=== PATIENT | male | born 1985 | race Caucasian/White ===

== ENCOUNTER 2024-04-24 14:22 | Inpatient (IN) | payer OTHER ==
[2024-04-24 15:27] VITALS: BMI 35.9
[2024-04-24] MEDS ORDERED: NICOTINE POLACRILEX 2 MG LOZENGE BC PRN (16:48)
[2024-04-24] MEDS ORDERED: IBUPROFEN 600 MG TABLET (FP) PO PRN (16:48)
[2024-04-24] MEDS ORDERED: NALOXONE (NARCAN) HCL 4 MG/0.1 ML SPRAY NS PRN (16:48)
[2024-04-24] MEDS ORDERED: ACETAMINOPHEN 325 MG TABLET (FP) PO PRN (16:48)
[2024-04-24] MEDS ORDERED: ONDANSETRON *ODT* 4 MG TABLET SL PRN (16:48)
[2024-04-24] MEDS ORDERED: BENZONATATE 200 MG CAPSULE PO PRN (16:48)
[2024-04-24] MEDS ORDERED: guaiFENesin 600 MG TABLET.ER (FP) PO PRN (16:48)
[2024-04-24] MEDS ORDERED: DICYCLOMINE HCL 10 MG CAPSULE PO PRN (16:48)
[2024-04-24] MEDS ORDERED: hydrOXYzine PAMOATE 25 MG CAPSULE (FP) PO PRN (16:48)
[2024-04-24] MEDS ORDERED: IBUPROFEN 400 MG TABLET (FP) PO PRN (16:48)
[2024-04-24] MEDS ORDERED: MAG HYDROX/AL HYDROX/SIMETH 30 ML UNIT-DOSE CUP PO PRN (16:48)
[2024-04-24] MEDS ORDERED: POLYETHYLENE GLYCOL (HEALTHYLAX) 3350 17 GM PACKET PO PRN (16:48)
[2024-04-24] MEDS ORDERED: BISMUTH SUBSALICYLATE 524 MG/30 ML PO PRN (16:48)
[2024-04-24] MEDS ORDERED: P-EPHED 60MG/TRIPROLIDI 2.5MG TABLET PO PRN (16:48)
[2024-04-24] MEDS ORDERED: LOPERAMIDE HCL 2 MG CAPSULE PO PRN (16:48)
[2024-04-24] MEDS: MELATONIN 5 MG TABLETS PO SCH (21:45)
[2024-04-24] MEDS: THIAMINE 100 MG TABLET PO SCH (21:45)
[2024-04-24] MEDS: METHOCARBAMOL 500 MG TABLET PO PRN (21:46)
[2024-04-25] MEDS ORDERED: chlordiazePOXIDE HCL 25 MG CAPSULE PO PRN (09:21)
[2024-04-25] MEDS: FLU VACCINE (FLULAVAL) PF 45 MCG/0.5 ML SYRINGE 2024-2025 IM ONE (09:40)
[2024-04-25] MEDS: PRENATAL VITAMINS W/ FOLIC ACID TABLET (FP) PO SCH (09:40)
[2024-04-25] MEDS: methaDONE HCL 10 MG TABLET PO SCH (09:48)
[2024-04-25 10:32] LABS: HEMATOCRIT 44.1 % (35.4-49); HEMOGLOBIN 15.1 GM/dL (11.7-16.9); MCH 32.3 pg (25.7-33.7); MCHC 34.2 g/dl (32.0-35.9); MEAN CELL VOLUME 94.4 fl (80-96); MEAN PLT VOLUME 9.4 fl (7.5-11.1); PLATELET COUNT 167 10^3/uL (134-434); RBC 4.67 M/mm3 (4.00-5.60); RDW 13.1 % (11.9-15.9); WHITE BLOOD COUNT 5.5 K/mm3 (4.0-10.0)
[2024-04-25 10:34] LABS: POTASSIUM 5.3 mmol/L (3.5-5.1)
[2024-04-25 10:40] LABS: ALBUMIN 3.7 g/dl (3.4-5.0); BLOOD UREA NITROGEN 9.9 mg/dL (7-18)
[2024-04-25 10:43] LABS: BILIRUBIN,TOTAL 1.3 mg/dL (0.2-1); TOT PROT 8.3 g/dl (6.4-8.2)
[2024-04-25] MEDS: chlordiazePOXIDE HCL 25 MG CAPSULE PO SCH (10:46)
[2024-04-25] MEDS: NICOTINE 14 MG/24 HOURS TOPICAL PATCH TD SCH (10:46)
[2024-04-25] MEDS: BICTEGRAV/EMTRICIT/TENOFOV (BIKTARVY) 50-200-25 MG TABLET PO SCH (14:43)
[2024-04-25 17:31] LABS: POTASSIUM 4.3 mmol/L (3.5-5.1)
[2024-04-25 17:33] LABS: CALCIUM 9.6 mg/dL (8.5-10.1)
[2024-04-25 17:34] LABS: BLOOD UREA NITROGEN 10.3 mg/dL (7-18)
[2024-04-26] MEDS: NICOTINE POLACRILEX 2 MG GUM BUC PRN (07:44)
[2024-04-26] MEDS: MAGNESIUM HYDROX 2400MG/30ML ORAL SUSPENSION 30 ML CUP PO PRN (14:43)
[2024-04-27] MEDS: chlordiazePOXIDE HCL 25 MG CAPSULE PO SCH (05:10)
[2024-04-27] MEDS: CLOTRIMAZOLE 1% CREAM TP SCH (14:46)
[2024-04-28] MEDS ORDERED: chlordiazePOXIDE HCL 10 MG CAPSULE PO PRN
[2024-04-28] MEDS: chlordiazePOXIDE HCL 10 MG CAPSULE PO SCH (05:19)
[2024-04-29] MEDS: chlordiazePOXIDE HCL 10 MG CAPSULE PO SCH (05:51)
[2024-04-29] MEDS: methaDONE HCL 10 MG TABLET PO ONE (10:00)
[2024-04-29 16:53] VITALS: RESP 18
[2024-04-30] MEDS: chlordiazePOXIDE HCL 10 MG CAPSULE PO ONE (05:28)
[2024-04-30] MEDS: BENZOCAINE/MENTHOL (CHLORASEPTIC ) LOZENGE MM PRN (05:29)
[2024-04-30] MEDS: NYSTATIN 500,000 UNITS/5 ML SUSPENSION PO ONE (09:54)
[2024-04-30] MEDS: NALOXONE (NYS OPIOID OVERDOSE PROGRAM) 4 MG/0.1 ML SPRAY NS SCH (09:59)
[2024-04-30 13:12] VITALS: BP 133/78; PULSE 78; TEMP 98
== END 2024-04-30 15:21 | disposition other institution (70) | DRG 773 ==
LOC: YASAS 14:22 → Y3N 20:15
PROVIDERS: ADMIT Allergy & Immunology; ATTEND Surgery
PROC: HZ2ZZZZ Detoxification Services for Substance Abuse Treatment (ICD-10-PCS; principal; 2024-04-24)
DX: F10.230 Alcohol dependence with withdrawal, uncomplicated (principal); F11.20 Opioid dependence, uncomplicated; F12.20 Cannabis dependence, uncomplicated; F17.210 Nicotine dependence, cigarettes, uncomplicated; F39 Unspecified mood [affective] disorder; Z21 Asymptomatic human immunodeficiency virus [HIV] infection status; R74.01 Elevation of levels of liver transaminase levels; Z79.899 Other long term (current) drug therapy
CPT/HCPCS: 36415; 80048; 80053; 80305; 80307; 85027; 86780; 87811; 90656; 93005; 93010; G0008

== ENCOUNTER 2024-04-30 17:23 | Inpatient (IN) | payer OTHER ==
[2024-04-30] MEDS ORDERED: NALOXONE (NARCAN) HCL 4 MG/0.1 ML SPRAY NS PRN (18:20)
[2024-04-30] MEDS ORDERED: MAGNESIUM HYDROX 2400MG/30ML ORAL SUSPENSION 30 ML CUP PO PRN (18:20)
[2024-04-30] MEDS ORDERED: NALOXONE HCL 0.4 MG/ML VIAL IVPUSH PRN (18:20)
[2024-04-30] MEDS ORDERED: LOPERAMIDE HCL 2 MG CAPSULE PO PRN (18:20)
[2024-04-30] MEDS ORDERED: hydrOXYzine PAMOATE 25 MG CAPSULE (FP) PO PRN (18:20)
[2024-04-30] MEDS ORDERED: IBUPROFEN 600 MG TABLET (FP) PO PRN (18:20)
[2024-04-30] MEDS ORDERED: POLYETHYLENE GLYCOL (HEALTHYLAX) 3350 17 GM PACKET PO PRN (18:20)
[2024-04-30] MEDS ORDERED: ACETAMINOPHEN 325 MG TABLET (FP) PO PRN (18:20)
[2024-04-30] MEDS ORDERED: BENZONATATE 200 MG CAPSULE PO PRN (18:20)
[2024-04-30] MEDS ORDERED: BENZOCAINE/MENTHOL (CHLORASEPTIC ) LOZENGE MM PRN (18:20)
[2024-04-30] MEDS ORDERED: IBUPROFEN 400 MG TABLET (FP) PO PRN (18:20)
[2024-04-30] MEDS ORDERED: guaiFENesin 600 MG TABLET.ER (FP) PO PRN (18:20)
[2024-04-30] MEDS: THIAMINE 100 MG TABLET PO SCH (22:19)
[2024-04-30] MEDS: METHOCARBAMOL 500 MG TABLET PO PRN (22:19)
[2024-04-30] MEDS: MELATONIN 5 MG TABLETS PO SCH (22:19)
[2024-04-30] MEDS ORDERED: BENZOCAINE/MENTH/CETYLPYRD CL 1 EACH LOZENGE MM PRN (22:56)
[2024-05-01] MEDS: NICOTINE POLACRILEX 2 MG GUM BUC PRN (02:17)
[2024-05-01] MEDS ORDERED: methaDONE HCL 40 MG DISPERSABLE TABLET PO SCH (10:00)
[2024-05-01] MEDS: PRENATAL VITAMINS W/ FOLIC ACID TABLET (FP) PO SCH (10:08)
[2024-05-01] MEDS: NICOTINE 14 MG/24 HOURS TOPICAL PATCH TD SCH (10:09)
[2024-05-01] MEDS: BICTEGRAV/EMTRICIT/TENOFOV (BIKTARVY) 50-200-25 MG TABLET PO SCH (10:49)
[2024-05-02] MEDS: MELATONIN 5 MG TABLETS PO PRN (21:16)
[2024-05-03 11:19] LABS: INR 1.06 (0.83-1.09)
[2024-05-03] MEDS ORDERED: methaDONE HCL 10 MG TABLET PO ONE (13:02)
[2024-05-03] MEDS: methaDONE 80 MG, methaDONE 20 MG PO ONE (13:17)
[2024-05-04] MEDS: methaDONE 80 MG, methaDONE 20 MG PO SCH (10:14)
[2024-05-04] MEDS: methaDONE HCL 10 MG TABLET PO SCH (10:16)
[2024-05-04] MEDS: LACTULOSE 20 GM/30 ML UDC (FOR ORAL USE ONLY) PO SCH (14:04)
[2024-05-12] MEDS: MAG HYDROX/AL HYDROX/SIMETH 30 ML UNIT-DOSE CUP PO PRN (22:32)
[2024-05-13 06:32] VITALS: TEMP 97.5
[2024-05-13 09:11] VITALS: RESP 16
[2024-05-14 08:58] VITALS: BP 136/82; PULSE 74
[2024-05-14] MEDS: NALOXONE (NYS OPIOID OVERDOSE PROGRAM) 4 MG/0.1 ML SPRAY NS SCH (12:33)
== END 2024-05-14 12:55 | disposition home or self-care (01) | DRG 772 ==
LOC: YASAS 17:23 → Y3NR 17:24 → Y3W 05-01 11:09
PROVIDERS: ADMIT Psychiatry & Neurology Pain Medicine; ATTEND Psychiatry & Neurology Pain Medicine
PROC: HZ42ZZZ Group Counseling for Substance Abuse Treatment, Cognitive-Behavioral (ICD-10-PCS; principal; 2024-04-30)
DX: F10.20 Alcohol dependence, uncomplicated (principal); F10.220 Alcohol dependence with intoxication, uncomplicated; F11.20 Opioid dependence, uncomplicated; F12.20 Cannabis dependence, uncomplicated; F17.210 Nicotine dependence, cigarettes, uncomplicated; F39 Unspecified mood [affective] disorder; I27.20 Pulmonary hypertension, unspecified; R79.89 Other specified abnormal findings of blood chemistry; E72.20 Disorder of urea cycle metabolism, unspecified; Z21 Asymptomatic human immunodeficiency virus [HIV] infection status; R41.82 Altered mental status, unspecified; M79.89 Other specified soft tissue disorders; S09.8XXA Other specified injuries of head, initial encounter; W22.8XXA Striking against or struck by other objects, initial encounter; Y93.89 Activity, other specified; Y92.238 Other place in hospital as the place of occurrence of the external cause; Z86.59 Personal history of other mental and behavioral disorders
CPT/HCPCS: 36415; 80305; 82140; 82652; 82962; 83735; 85610; 86803; 87522

== ENCOUNTER 2024-05-01 15:54 | Emergency (ER) | payer OTHER ==
[2024-05-01 16:00] VITALS: TEMP 97.5; BMI 34.4
[2024-05-01 17:56] LABS: BASO % 0.3 % (0-2.0); EOS % 3.7 % (0-4.5); HEMATOCRIT 38.3 % (35.4-49); HEMOGLOBIN 12.8 GM/dL (11.7-16.9); LYMPH % 32.4 % (8-40); MCH 31.8 pg (25.7-33.7); MCHC 33.5 g/dl (32.0-35.9); MEAN PLT VOLUME 9.5 fl (7.5-11.1); MONO % 14.4 % (3.8-10.2); NEUT % 49.2 % (42.8-82.8); PLATELET COUNT 142 10^3/uL (134-434); RBC 4.03 M/mm3 (4.00-5.60); RDW 13.1 % (11.9-15.9); WHITE BLOOD COUNT 5.6 K/mm3 (4.0-10.0)
[2024-05-01 17:59] LABS: URINE APPEARANCE Clear; URINE BILIRUBIN Negative (NEGATIVE); URINE COLOR Yellow; URINE GLUCOSE (UA) Negative (NEGATIVE); URINE KETONE Negative (NEGATIVE); URINE LEUK ESTERASE Negative (NEGATIVE); URINE NITRITE Negative (NEGATIVE); URINE PROTEIN Negative (NEGATIVE); URINE UROBILINOGEN 0.2 mg/dL (0.2-1.0)
[2024-05-01 18:03] LABS: INR 0.97 (0.83-1.09)
[2024-05-01 18:05] LABS: ACTIVATED PTT 29.8 SECONDS (25.2-36.5)
[2024-05-01 18:16] LABS: ALBUMIN 3.4 g/dl (3.4-5.0); BLOOD UREA NITROGEN 14.8 mg/dL (7-18)
[2024-05-01 18:20] LABS: CREATININE 0.9 mg/dL (0.55-1.3)
[2024-05-01 18:21] LABS: BILIRUBIN,TOTAL 0.6 mg/dL (0.2-1); TOT PROT 7.6 g/dl (6.4-8.2)
[2024-05-01 18:26] LABS: N-TERMINAL BNP 17.6 pg/ml (5-125)
[2024-05-01 21:19] VITALS: BP 114/80; PULSE 66; RESP 14
== END 2024-05-01 22:30 | disposition short-term general hospital (02) ==
LOC: JER 15:54
DX: M79.89 Other specified soft tissue disorders (principal)
CPT/HCPCS: 36415; 71046-TC-FY; 71275-TC; 80053; 81003; 83735; 83880; 84484; 85025; 85610; 85730; 87040; 87076; 93005; 93010; 93308; 93970-TC; 99285-25; Q9967